=== PATIENT | female | born 1985 | race Caucasian/White ===

== ENCOUNTER → 2016-09-30 | Outpatient (CLI) | payer OTHER, MEDICAID | LOC: FIMAGING 15:22 | PROVIDERS: ATTEND Family Medicine | DX: R19.7 Diarrhea, unspecified (principal); K56.41 Fecal impaction ==

== ENCOUNTER → 2016-10-09 | Outpatient (CLI) | payer OTHER, MEDICAID | LOC: FIMAGING 16:03 | PROVIDERS: ATTEND Family Medicine | DX: M17.11 Unilateral primary osteoarthritis, right knee (principal); M79.671 Pain in right foot; M11.262 Other chondrocalcinosis, left knee; Q66.9 Congenital deformity of feet, unspecified; Q92.8 Other specified trisomies and partial trisomies of autosomes; Z98.890 Other specified postprocedural states ==

== ENCOUNTER → 2017-11-05 | Outpatient (CLI) | payer MEDICAID | LOC: FIMAGING 17:41 | PROVIDERS: ATTEND Internal Medicine Gastroenterology | DX: R10.84 Generalized abdominal pain (principal) ==

== ENCOUNTER → 2018-02-12 | Outpatient (CLI) | payer MEDICAID | LOC: FIMAGING 16:38 | PROVIDERS: ATTEND Physician Assistant | DX: Z87.09 Personal history of other diseases of the respiratory system (principal) ==

== ENCOUNTER → 2018-08-16 | Outpatient (CLI) | payer MEDICAID | LOC: FIMAGING 16:39 | PROVIDERS: ATTEND Family Medicine | DX: Q66.9 Congenital deformity of feet, unspecified (principal); R26.89 Other abnormalities of gait and mobility; M25.562 Pain in left knee; M25.561 Pain in right knee ==

== ENCOUNTER → 2018-09-01 | Outpatient (CLI) | payer MEDICAID | LOC: FIMAGING 15:56 | PROVIDERS: ATTEND Otolaryngology Otolaryngology/Facial Plastic Surgery | DX: R26.89 Other abnormalities of gait and mobility (principal); Q66.89 Other specified congenital deformities of feet ==